=== PATIENT | female | born 1950 | race Caucasian/White ===

== ENCOUNTER 2016-07-11 16:59 | Observation (INO) | payer MEDICARE, OTHER ==
[2016-07-11] MEDS ORDERED: Sodium Chloride 0.9% 500 ML 500 ML IV PRN (17:13)
[2016-07-11] MEDS ORDERED: BENADRYL 25 MG CAPSULE PO SCH (17:15)
[2016-07-11] MEDS ORDERED: Zofran 4 MG/2 ML VIAL IV PRN (17:16)
[2016-07-11] MEDS ORDERED: TYLENOL 325 MG PO SCH (17:30)
[2016-07-11 18:39] LABS: BASOPHIL % 1.3 % (0.0-0.4); Eosinophil % 2.4 % (0.00-5.0); Lymphocytes % 12.3 % (24.0-44.0); Mean Cell Volume 69.8 fl (78-100); Mean Corpuscular Hemoglobin 17.6 pg (26-32); Mean Platelet Volume 9.5 fl (6-9.5); Platelet Count 576 K/mm3 (150-450); Red Blood Count 3.01 M/mm3 (4.1-5.4); Red Cell Distribution Width 19.9 % (11.5-14.0); White Blood Count 8.3 K/mm3 (4.0-10.5)
[2016-07-12] MEDS ORDERED: BENADRYL 25 MG CAPSULE ONE (04:44)
[2016-07-12] MEDS ORDERED: TYLENOL 325 MG ONE (04:45)
[2016-07-12 04:47] VITALS: O2SAT 96
[2016-07-12 07:32] VITALS: BP 153/70; PULSE 83
--- NOTE | 2016-07-12 08:35 | PCM.SSS ---
History of Present Illness - Chief Complaint Chief Complaint: SOB, Anemia History of Present Illness: is a 66 year old female who was direct admitted from the office for profound anemia, she complained of shortness of breath and palpitations, had hemoglobin of 5.3 She has no prior history of anemia, hadn't had labs done for many years. denies history of GI bleeding, takes asa 81mg daily for heart protection and bp med. she denies bowel changes, has never had a colonoscopy. she is menopausal and has no vaginal bleeding etc. her diet is normal - Review of Systems Constitutional: No Fever, No Chills Respiratory: Short Of Breath Cardiac: Palpitations, No Chest Pain Abdominal/Gastrointestinal: No Abdominal Pain, No Nausea, No Vomiting, No Diarrhea, No Constipation, No Hematemesis, No Hematochezia, No Melena Genitourinary Symptoms: No Dysuria Skin: No Rash All Other Systems: Reviewed and Negative Medications & Allergies Home Medications: Home Medication List Esomeprazole Magnesium [Nexium] 20 mg PO DAILY 07/11/16 [History Confirmed 07/11] Valsartan/Hydrochlorothiazide [Valsartan-Hctz 80-12.5 mg Tab] 1 each PO DAILY [History Confirmed 07/11/16] Docusate Sodium 100 mg [Colace 100 MG] 100 mg PO BID #60 capsule 07/12/16 [Rx] Ferrous Sulfate 325 mg [Feosol 325 mg] 325 mg PO BID #60 tablet 07/12/16 [ Rx] Allergies/Adverse Reactions: Allergies Allergy/AdvReac Type Severity Reaction Status Date / Time cefuroxime [From Ceftin] Allergy Verified 07/11/16 18:08 etodolac [From Lodine] Allergy Hives Verified 07/11/16 18:07 clarithromycin [From Biaxin] AdvReac Verified 07/11/16 18:07 levofloxacin [From Levaquin] AdvReac Verified 07/11/16 18:07 - Past Medical History Past Medical History: Yes Neurological History: No Pertinent History ENT History: No Pertinent History Cardiac History: Hypertension Respiratory History: Other Endocrine Medical History: No Pertinent History Musculoskelatal History: No Pertinent History GI Medical History: GERD History: No Pertinent History Pyscho-Social History: No Pertinent History Reproductive Disorders: No Pertinent History Comment: Hx of pnuemothorax. - Female History Are you now?: No - Past Surgical History Past Surgical History: Yes Neuro Surgical History: No Pertinent History Cardiac History: No Pertinent History Respiratory Surgery: Lobectomy GI Surgical History: No Pertinent History Genitourinary Surgical Hx: No Pertinent History Musculskeletal Surgical Hx: Orthopedic Surgery Female Surgical History: Tubal Ligation Other Surgical History: LLL lobectomy. Foot Sx 5 times. - Social History Smoking Status: Never smoker Exposure to second hand smoke: Yes (Relatives) Alcohol: Occasionally Drug Use: none - Physical Exam Vital Signs: Vital Signs - 24 hr Temp Pulse Resp BP Pulse Ox 07/12/16 07:32 98.3 F 83 18 153/70 96 07/12/16 06:35 19 07/12/16 04:47 98.5 F 07/12/16 04:00 98.7 F 82 19 155/69 96 07/12/16 00:00 98.8 F 84 18 136/71 100 07/11/16 18:32 98.5 F 104 H 18 137/69 97 07/11/16 18:00 98.5 F 104 H 137/69 07/11/16 17:54 98.5 F 104 H 18 137/69 97 General Appearance: no apparent distress, alert Neurologic Exam: alert, oriented x 3, cooperative, normal mood/affect, nml cerebellar function, nml station & gait, sensation nml, No motor deficits Respiratory Exam: normal breath sounds, lungs clear, No respiratory distress Cardiovascular Exam: regular rate/rhythm, normal heart sounds, normal peripheral pulses Gastrointestinal/Abdomen Exam: soft, normal bowel sounds, No tenderness, No mass Extremity Exam: normal inspection, normal range of motion, pelvis stable Skin Exam: normal color, warm, dry, No rash Results - Labs Lab/Micro Results: Lab Results-Last 24 Hours 07/11/16 07/11/16 07/11/16 Range/Units 18:30 18:30 18:30 WBC 8.3 (4.0-10.5) K/mm3 RBC 3.01 L (4.1-5.4) M/mm3 Hgb 5.3 L* (12.0-16.0) gm/dl Hct 21.0 L (35-47) % MCV 69.8 L (78-100) fl MCH 17.6 L (26-32) pg MCHC 25.2 L (32-36) g/dl RDW 19.9 H (11.5-14.0) % Plt Count 576 H (150-450) K/mm3 MPV 9.5 (6-9.5) fl Gran % 77.0 H (36.0-66.0) % Lymphocytes % 12.3 L (24.0-44.0) % Monocytes % 7.0 (0.0-12.0) % Eosinophils % 2.4 (0.00-5.0) % Basophils % 1.3 (0.0-0.4) % Basophils # 0.11 (0-0.4) Iron 15 L (50-175) ug/dl TIBC 455 H (250-450) ug/dl Iron Saturation 3.3 L (20-39) % Ferritin 2 L (8-388) Vitamin B12 455 (193-986) Folic Acid 16.8 (8.6-58.9) ABO Group Rh Factor Antibody Screen (NEGATIVE) Crossmatch (COMPATIBLE) 07/11/16 07/11/16 07/11/16 Range/Units 18:30 18:30 18:30 WBC (4.0-10.5) K/mm3 RBC (4.1-5.4) M/mm3 Hgb (12.0-16.0) gm/dl Hct (35-47) % MCV (78-100) fl MCH (26-32) pg MCHC (32-36) g/dl RDW (11.5-14.0) % Plt Count (150-450) K/mm3 MPV (6-9.5) fl Gran % (36.0-66.0) % Lymphocytes % (24.0-44.0) % Monocytes % (0.0-12.0) % Eosinophils % (0.00-5.0) % Basophils % (0.0-0.4) % Basophils # (0-0.4) Iron (50-175) ug/dl TIBC (250-450) ug/dl Iron Saturation (20-39) % Ferritin (8-388) Vitamin B12 (193-986) Folic Acid (8.6-58.9) ABO Group O Rh Factor NEGATIVE Antibody Screen NEGATIVE (NEGATIVE) Crossmatch COMPATIBLE COMPATIBLE COMPATIBLE (COMPATIBLE) - Radiology Impressions Radiology Exams & Impressions: Radiology Procedures Category Date Time Status CHEST 2 VIEWS (PA AND LAT) Routine Exams 07/11/16 18:05 Taken Assessment/Plan (1) Iron deficiency anemia Current Visit: Yes Status: Acute Assessment & Plan: has been transfused 3 units and all symptoms have resolved. post-transfusion h/ h has not been drawn. will discharge on iron and stool softener, patient needs outpatient EGD and colonoscopy but she seems very reluctant and states she wants to get recovered from this before she has it done, she has no family history of colon cancer or stool changes etc but I discussed my recommendation and risk of chronic bleed and missed lesions etc. she voices understanding, these need to be arranged after discharge Code(s): D50.9 - IRON DEFICIENCY ANEMIA, UNSPECIFIED (2) Essential (primary) hypertension Current Visit: Yes Status: Acute Assessment & Plan: resume home meds Code(s): I10 - ESSENTIAL (PRIMARY) HYPERTENSION Hospital Summary - Vitals & Intake/Output Vital Signs: Vital Signs Temperature 98.3 F 07/12/16 07:32 Pulse Rate 83 07/12/16 07:32 Respiratory Rate 18 07/12/16 07:32 Blood Pressure 153/70 07/12/16 07:32 O2 Sat by Pulse Oximetry 96 07/12/16 07:32 Intake & Output: Intake & Output 07/09/16 07/10/16 07/11/16 07/12/16 11:59 11:59 11:59 11:59 Intake Total 2053 Balance 2053 Weight 79.787 kg - Lab Result Diagrams: 07/11/16 18:30 Lab Results-Last 24 Hrs: Lab Results-Last 24 Hours 07/11/16 07/11/16 07/11/16 Range/Units 18:30 18:30 18:30 WBC 8.3 (4.0-10.5) K/mm3 RBC 3.01 L (4.1-5.4) M/mm3 Hgb 5.3 L* (12.0-16.0) gm/dl Hct 21.0 L (35-47) % MCV 69.8 L (78-100) fl MCH 17.6 L (26-32) pg MCHC 25.2 L (32-36) g/dl RDW 19.9 H (11.5-14.0) % Plt Count 576 H (150-450) K/mm3 MPV 9.5 (6-9.5) fl Gran % 77.0 H (36.0-66.0) % Lymphocytes % 12.3 L (24.0-44.0) % Monocytes % 7.0 (0.0-12.0) % Eosinophils % 2.4 (0.00-5.0) % Basophils % 1.3 (0.0-0.4) % Basophils # 0.11 (0-0.4) Iron 15 L (50-175) ug/dl TIBC 455 H (250-450) ug/dl Iron Saturation 3.3 L (20-39) % Ferritin 2 L (8-388) Vitamin B12 455 (193-986) Folic Acid 16.8 (8.6-58.9) ABO Group Rh Factor Antibody Screen (NEGATIVE) Crossmatch (COMPATIBLE) 07/11/16 07/11/16 07/11/16 Range/Units 18:30 18:30 18:30 WBC (4.0-10.5) K/mm3 RBC (4.1-5.4) M/mm3 Hgb (12.0-16.0) gm/dl Hct (35-47) % MCV (78-100) fl MCH (26-32) pg MCHC (32-36) g/dl RDW (11.5-14.0) % Plt Count (150-450) K/mm3 MPV (6-9.5) fl Gran % (36.0-66.0) % Lymphocytes % (24.0-44.0) % Monocytes % (0.0-12.0) % Eosinophils % (0.00-5.0) % Basophils % (0.0-0.4) % Basophils # (0-0.4) Iron (50-175) ug/dl TIBC (250-450) ug/dl Iron Saturation (20-39) % Ferritin (8-388) Vitamin B12 (193-986) Folic Acid (8.6-58.9) ABO Group O Rh Factor NEGATIVE Antibody Screen NEGATIVE (NEGATIVE) Crossmatch COMPATIBLE COMPATIBLE COMPATIBLE (COMPATIBLE) - Radiology Exams Ordered Rad Exams-Entire Visit: Radiology Procedures Category Date Time Status CHEST 2 VIEWS (PA AND LAT) Routine Exams 07/11/16 18:05 Taken - Discharge Disposition: Home, Self-Care Condition: Stable Prescriptions: Docusate Sodium 100 mg [Colace 100 MG] 100 mg PO BID #60 capsule Ferrous Sulfate 325 mg [Feosol 325 mg] 325 mg PO BID #60 tablet Medications: Home Medications Aspirin [Aspirin EC] 81 mg PO DAILY 07/11/16 [Confirmed 07/11/16] Esomeprazole Magnesium [Nexium] 20 mg PO DAILY 07/11/16 [Confirmed 07/11/16] Valsartan/Hydrochlorothiazide [Valsartan-Hctz 80-12.5 mg Tab] 1 each PO DAILY [Confirmed 07/11/16] Active Inpatient Medications Hydrochlorothiazide (Hydrodiuril 25 Mg) 12.5 mg PO DAILY [facility] Stop: 08/11/16 09:59 Last Admin: 07/12/16 08:25 Dose: Not Given Sodium Chloride (Sodium Chloride 0.9% 500 Ml) 500 mls @ 50 mls/hr IV .Q10H PRN Stop: 08/10/16 17:12 Ondansetron HCl (Zofran 4 Mg/2 Ml Vial) 4 mg IV Q4H PRN PRN Stop: 08/10/16 17:15 Pantoprazole Sodium (Protonix 40mg Tablet) 40 mg PO DAILY [facility] Stop: 08/11/16 09:59 Last Admin: 07/12/16 08:24 Dose: Not Given Valsartan (Diovan 80 Mg) 80 mg PO DAILY [facility] Stop: 08/11/16 09:59 Last Admin: 07/12/16 08:25 Dose: Not Given Follow up with: SANTOS GU MD [Primary Care Provider] - 1 Week
--- NOTE | 2016-07-12 08:53 | XRAY ---
Indication: Short of breath, palpitations, and anemia. Comparison: October 25, 2006 PA/lateral chest remains clear again with a few calcified granulomas. Heart is not enlarged. Stable moderate-sized hiatal hernia. Bony thorax intact again with mild osteopenia, degenerative changes, and scoliosis. Impression: Stable nonacute chest with chronic features.
--- NOTE | 2016-07-12 09:09 | PCM.DCORD ---
- Discharge Disposition: Home, Self-Care Condition: Stable Prescriptions: Docusate Sodium 100 mg [Colace 100 MG] 100 mg PO BID #60 capsule Ferrous Sulfate 325 mg [Feosol 325 mg] 325 mg PO BID #60 tablet Medications: Home Medications Esomeprazole Magnesium [Nexium] 20 mg PO DAILY 07/11/16 [Confirmed 07/11/16] Valsartan/Hydrochlorothiazide [Valsartan-Hctz 80-12.5 mg Tab] 1 each PO DAILY [Confirmed 07/11/16] Docusate Sodium 100 mg [Colace 100 MG] 100 mg PO BID #60 capsule 07/12/16 Ferrous Sulfate 325 mg [Feosol 325 mg] 325 mg PO BID #60 tablet 07/12/16 Active Inpatient Medications Hydrochlorothiazide (Hydrodiuril 25 Mg) 12.5 mg PO DAILY [facility] Stop: 08/11/16 09:59 Last Admin: 07/12/16 08:25 Dose: Not Given Sodium Chloride (Sodium Chloride 0.9% 500 Ml) 500 mls @ 50 mls/hr IV .Q10H PRN Stop: 08/10/16 17:12 Ondansetron HCl (Zofran 4 Mg/2 Ml Vial) 4 mg IV Q4H PRN PRN Stop: 08/10/16 17:15 Pantoprazole Sodium (Protonix 40mg Tablet) 40 mg PO DAILY [facility] Stop: 08/11/16 09:59 Last Admin: 07/12/16 08:24 Dose: Not Given Valsartan (Diovan 80 Mg) 80 mg PO DAILY [facility] Stop: 08/11/16 09:59 Last Admin: 07/12/16 08:25 Dose: Not Given Follow up with: SANTOS GU MD [Primary Care Provider] - 1 Week
[2016-07-12] MEDS ORDERED: Protonix 40MG Tablet PO SCH (10:00)
[2016-07-12] MEDS ORDERED: DIOVAN 80 MG PO SCH (10:00)
[2016-07-12] MEDS ORDERED: hydroDIURIL 25 MG PO SCH (10:00)
== END 2016-07-12 09:50 | disposition home or self-care (01) ==
LOC: MED SURG 17:14
PROVIDERS: ADMIT Family Medicine; ATTEND Family Medicine
DX: D50.9 Iron deficiency anemia, unspecified (principal); I10 Essential (primary) hypertension; K21.9 Gastro-esophageal reflux disease without esophagitis
CPT/HCPCS: 36415; 36430; 71020; 80053; 82607; 82728; 82746; 83540; 83550; 85014; 85018; 85025; 85045; 86850; 86900; 86901; 86922; 93268; G0378; P9016

== ENCOUNTER 2021-02-18 13:59 | Emergency (ER) | payer MEDICARE, OTHER ==
[2021-02-18] MEDS ORDERED: Adenocard IV 6 MG/2 ML IV ONE ×2 (14:12→14:51)
--- NOTE | 2021-02-18 14:16 | ERPHSYRPT ---
- History of Present Illness Time Seen by Provider: 02/18/21 14:15 Source: patient Exam Limitations: no limitations Patient Subjective Stated Complaint: Pt states "I was walking in [place] and I started to have palpitations and shortness of breath and my heart was racing." Triage Nursing Assessment: Pt presented alert and oriented X 3, skin pwd Pt ambulates with an upright steady gait, able to speak in clear full sentences pt in no apparent respiratory distress. Timing/Duration: today Activities at Onset: activity Quality: pressure Location: central Chest Pain Radiation: no radiation Severity of Pain-Max: mild Severity of Pain-Current: none Modifying Factors: Improves With: nothing Nitro Today/Relief: no nitro taken today Aspirin Treatment Today: no aspirin today Associated Symptoms: denies symptoms Prior Chest Pain/Cardiac Workup: no prior chest pain Allergies/Adverse Reactions: cefuroxime [From Ceftin] Allergy (Verified 07/11/16 18:08) etodolac [From Lodine] Allergy (Verified 07/11/16 18:07) Hives clarithromycin [From Biaxin] Adverse Reaction (Verified 07/11/16 18:07) levofloxacin [From Levaquin] Adverse Reaction (Verified 07/11/16 18:07) Home Medications: Esomeprazole Magnesium [Nexium] 20 mg PO DAILY 07/11/16 [History] Losartan/Hydrochlorothiazide [Losartan-Hctz 100-12.5 mg Tab] 1 each PO DAILY 02/18/21 [History] Hx Tetanus, Diphtheria Vaccination/Date Given: No Hx Influenza Vaccination/Date Given: Yes Hx Pneumococcal Vaccination/Date Given: No Immunizations Up to Date: Yes Travel Risk - International Travel Have you traveled outside of the country in past 3 weeks: No - Coronavirus Screening Are you exhibiting any of the following symptoms?: No Close contact with a COVID-19 positive Pt in past 14-21 Days: No - Vaccine Status Have you recieved a Covid-19 vaccination: Yes [employer]: [employer] - Vaccination Dates Date of 2cond Vaccination (if applicable): 08/2020 - Review of Systems Constitutional: No Symptoms Eyes: No Symptoms Ears, Nose, & Throat: No Symptoms Respiratory: No Symptoms Cardiac: Palpitations Abdominal/Gastrointestinal: No Symptoms Genitourinary Symptoms: No Symptoms Musculoskeletal: No Symptoms Skin: No Symptoms Neurological: No Symptoms Psychological: No Symptoms Endocrine: No Symptoms Hematologic/Lymphatic: No Symptoms Immunological/Allergic: No Symptoms All Other Systems: Reviewed and Negative - Past Medical History Pertinent Past Medical History: Yes Neurological History: No Pertinent History ENT History: No Pertinent History Cardiac History: Hypertension Respiratory History: Other Endocrine Medical History: No Pertinent History Musculoskeletal History: No Pertinent History GI Medical History: GERD History: No Pertinent History Psycho-Social History: No Pertinent History Female Reproductive Disorders: No Pertinent History Other Medical History: Hx of pnuemothorax. - Past Surgical History Past Surgical History: Yes Neuro Surgical History: No Pertinent History Cardiac: No Pertinent History Respiratory: Lobectomy Gastrointestinal: No Pertinent History Genitourinary: No Pertinent History Musculoskeletal: Orthopedic Surgery Female Surgical History: Tubal Ligation Other Surgical History: LLL lobectomy. Foot Sx 5 times. - Social History Smoking Status: Never smoker Exposure to second hand smoke: No Drug Use: none Patient Lives Alone: No Significant Family History: no pertinent family hx - Female History Hx Now: No - Nursing Vital Signs Nursing Vital Signs: Initial Vital Signs Temperature 98.7 F 02/18/21 13:59 Pulse Rate 155 H 02/18/21 13:59 Respiratory Rate 22 02/18/21 13:59 Blood Pressure 154/91 02/18/21 13:59 O2 Sat by Pulse Oximetry 100 02/18/21 13:59 Pain Scale Pain Intensity 0 - Physical Exam General Appearance: no apparent distress Eye Exam: PERRL/EOMI Ears, Nose, Throat Exam: normal ENT inspection Neck Exam: normal inspection Respiratory Exam: normal breath sounds Cardiovascular Exam: tachycardia Pelvic Exam: not done Rectal Exam: not done Back Exam: normal inspection Extremity Exam: normal inspection Neurologic Exam: alert, oriented x 3, cooperative Skin Exam: normal color SpO2 Interpretation: normal SpO2: 100 O2 Delivery: Room Air - Course Nursing assessment & vital signs reviewed: Yes EKG Interpreted by Me: RATE (150), Sinus Tach, NORMAL AXIS, NORMAL INTERVALS, NORMAL QRS, NORMAL ST-T Rhythm Strip: Sinus Tachycardia Ordered Tests: Medication Summary Discontinued Medications Generic Name Dose Route Start Last Admin Trade Name Freq PRN Reason Stop Dose Admin Adenosine Confirm 02/18/21 14:12 Adenocard Iv 6 Mg/2 Ml Administered 02/18/21 14:13 Dose 18 mg IV .STK-MED ONE Adenosine 6 mg 02/18/21 14:51 02/18/21 14:05 Adenocard Iv 6 Mg/2 Ml IV 02/18/21 14:52 6 mg STAT ONE Administration Sodium Chloride Confirm 02/18/21 14:18 Sodium Chloride 0.9% 1000 Ml Administered 02/18/21 14:19 Dose 1,000 mls @ .ROUTE .[facility]-MED ONE Lab/Rad Data: Laboratory Result Diagrams 02/18/21 14:20 02/18/21 14:20 Laboratory Results 02/18/21 02/18/21 02/18/21 Range/Units 14:20 14:20 14:20 WBC 10.2 (4.0-10.5) K/mm3 RBC 3.91 L (4.1-5.4) M/mm3 Hgb 8.4 L (12.0-16.0) gm/dl Hct 31.5 L (35-47) % MCV 80.6 (78-100) fl MCH 21.5 L (26-32) pg MCHC 26.7 L (32-36) g/dl RDW 23.1 H (11.5-14.0) % Plt Count 483 H (150-450) K/mm3 MPV 10.7 (7.5-11.0) fl Sodium 137 (137-145) mmol/L Potassium 3.9 (3.5-5.1) mmol/L Chloride 99 (98-107) mmol/L Carbon Dioxide 22 (22-30) mmol/L Anion Gap 20.0 H (5-15) MEQ/L BUN 23 H (7-17) mg/dL Creatinine 1.02 (0.52-1.04) mg/dL Estimated GFR 57.1 ML/MIN Glucose 130 H (74-106) mg/dL Calcium 9.8 (8.4-10.2) mg/dL Total Bilirubin 0.50 (0.2-1.3) mg/dL AST 26 (14-36) U/L ALT 14 (0-35) U/L Alkaline Phosphatase 99 (38-126) U/L Troponin I < 0.012 (0.000-0.034) ng/mL Serum Total Protein 7.7 (6.3-8.2) g/dL Albumin 4.8 (3.5-5.0) g/dL TSH 3rd Generation 1.730 (0.47-4.68) mIU/L Slides for Path Review YES - Progress Progress: re-examined Air Movement: good Progress Note: 02/24/21 16:19 One dose of adenocard changed her from sinus tach to NSR. She did not want admitted. 02/24/21 16:20 Blood Culture(s) Obtained: No Antibiotics given: No Counseled pt/family regarding: diagnosis, need for follow-up - Departure Departure Disposition: Home Clinical Impression: Tachycardia Anemia Qualifiers: Anemia type: unspecified type Qualified Code(s): D64.9 - Anemia, unspecified Condition: Stable Critical Care Time: No Referrals: DOCTOR,NO FAMILY [Primary Care Provider] - Instructions: Anemia Caused by Low Iron, Arrhythmias (DC) Additional Instructions: Important to see your right away about the anemia, and the episode of rapid heart rate.
[2021-02-18] MEDS ORDERED: Sodium Chloride 0.9% 1000 ML 1,000 ML ONE (14:18)
[2021-02-18 14:59] LABS: Hematocrit 31.5 % (35-47); Hemoglobin 8.4 gm/dl (12.0-16.0); Mean Cell Volume 80.6 fl (78-100); Mean Corpuscular Hemoglobin 21.5 pg (26-32); Mean Corpuscular Hgb Concent. 26.7 g/dl (32-36); Mean Platelet Volume 10.7 fl (7.5-11.0); Platelet Count 483 K/mm3 (150-450); Red Blood Count 3.91 M/mm3 (4.1-5.4); Red Cell Distribution Width 23.1 % (11.5-14.0); White Blood Count 10.2 K/mm3 (4.0-10.5)
[2021-02-18 15:33] LABS: Slide Review YES
[2021-02-18 15:42] LABS: ALBUMIN 4.8 g/dL (3.5-5.0); BILIRUBIN,TOTAL 0.5 mg/dL (0.2-1.3); Calcium 9.8 mg/dL (8.4-10.2); Creatinine 1 1.02 mg/dL (0.52-1.04); EST GLOMERULAR FILTRATION RATE 57.1 ML/MIN; Potassium 3.9 mmol/L (3.5-5.1); TSH, 3RD Generation 1.73 mIU/L (0.47-4.68); Total Protein 7.7 g/dL (6.3-8.2)
[2021-02-18 16:41] VITALS: BP 146/81; PULSE 83
[2021-02-24 16:20] VITALS: O2SAT 100
== END 2021-02-18 16:53 | disposition home or self-care (01) ==
LOC: ED 13:59
DX: R00.0 Tachycardia, unspecified (principal); D64.9 Anemia, unspecified; R06.02 Shortness of breath; I10 Essential (primary) hypertension; Z79.899 Other long term (current) drug therapy
CPT/HCPCS: 36000; 36415; 80053; 84443; 84484; 85027; 93005; 96374; 99284; J0153

== ENCOUNTER 2023-07-29 10:12 | Emergency (ER) | payer MEDICARE, OTHER ==
[2023-07-29] MEDS ORDERED: XYLOCAINE 1% HCL 20 ML MDV ONE (10:32)
[2023-07-29 10:33] VITALS: TEMP 98.7; O2SAT 99
--- NOTE | 2023-07-29 10:41 | ERPHSYRPT ---
- History of Present Illness Time Seen by Provider: 07/29/23 10:38 Source: patient Exam Limitations: no limitations Patient Subjective Stated Complaint: C/O "boil" to right labia Triage Nursing Assessment: Patient ambulated back to ER. She is alert and oriented. Patient with a large, red, warm, firm protrusion from right labia with a small open, yellow slough center. NO current drainage. ARea is tender to touch. Physician History: C/O "boil" to right labia Patient with a large, red, warm, firm protrusion from right labia with a small open, yellow slough center. NO current drainage. Area is tender to touch. Timing/Duration: day(s) (3-4 days) Quality: throbbing Onset Location: vaginal Pain Radiation: none Severity of Pain-Max: moderate Severity of Pain-Current: moderate Sexual intercourse history: non-contributory Modifying Factors: Improves With: nothing Associated Symptoms: vaginal discharge Allergies/Adverse Reactions: cefuroxime [From Ceftin] Allergy (Verified 07/29/23 10:20) etodolac [From Lodine] Allergy (Verified 07/29/23 10:20) Hives clarithromycin [From Biaxin] Adverse Reaction (Verified 07/29/23 10:20) levofloxacin [From Levaquin] Adverse Reaction (Verified 07/29/23 10:20) Home Medications: Ferrous Sulfate [Iron] 1 tab PO BID 07/29/23 [History] Losartan/Hydrochlorothiazide [Losartan-Hctz 100-12.5 mg Tab] 1 tab PO DAILY 07/29/23 [History] Hx Tetanus, Diphtheria Vaccination/Date Given: Yes Hx Influenza Vaccination/Date Given: Yes Hx Pneumococcal Vaccination/Date Given: No Travel Risk - International Travel Have you traveled outside of the country in past 3 weeks: No - Coronavirus Screening Are you exhibiting any of the following symptoms?: No Close contact with a COVID-19 positive Pt in past 14-21 Days: No - Vaccine Status Have you recieved a Covid-19 vaccination: Yes [facility] W[employer]rer: [facility] - Vaccination Dates Date of 2cond Vaccination (if applicable): 08/2020 - Review of Systems Constitutional: No Fever, No Chills Eyes: No Symptoms Ears, Nose, & Throat: No Symptoms Respiratory: No Cough, No Dyspnea Cardiac: No Chest Pain, No Edema, No Syncope Abdominal/Gastrointestinal: No Abdominal Pain, No Nausea, No Vomiting, No Diarrhea Genitourinary Symptoms: Vaginal Discharge, No Dysuria Musculoskeletal: No Back Pain, No Neck Pain Skin: No Rash Neurological: No Dizziness, No Focal Weakness, No Sensory Changes Psychological: No Symptoms Endocrine: No Symptoms All Other Systems: Reviewed and Negative - Past Medical History Pertinent Past Medical History: Yes Neurological History: No Pertinent History ENT History: No Pertinent History Cardiac History: Hypertension Respiratory History: Other Endocrine Medical History: No Pertinent History Musculoskeletal History: No Pertinent History GI Medical History: GERD History: No Pertinent History Psycho-Social History: No Pertinent History Female Reproductive Disorders: No Pertinent History Other Medical History: Hx of pnuemothorax. - Past Surgical History Past Surgical History: Yes Neuro Surgical History: No Pertinent History Cardiac: No Pertinent History Respiratory: Lobectomy Gastrointestinal: No Pertinent History Genitourinary: No Pertinent History Musculoskeletal: Orthopedic Surgery Female Surgical History: Tubal Ligation Other Surgical History: LLL lobectomy. Foot Sx 5 times. - Social History Smoking Status: Never smoker Exposure to second hand smoke: No Drug Use: none Patient Lives Alone: No Significant Family History: no pertinent family hx - Nursing Vital Signs Nursing Vital Signs: Initial Vital Signs Temperature 98.7 F 07/29/23 10:22 Pulse Rate 97 H 07/29/23 10:22 Respiratory Rate 18 07/29/23 10:22 Blood Pressure 181/98 07/29/23 10:22 O2 Sat by Pulse Oximetry 99 07/29/23 10:22 Pain Scale Pain Intensity 8 - Physical Exam General Appearance: no apparent distress, alert Eye Exam: PERRL/EOMI, eyes nml inspection Ears, Nose, Throat Exam: normal ENT inspection, TMs normal, pharynx normal, moist mucous membranes Neck Exam: normal inspection, non-tender, supple, full range of motion Respiratory Exam: normal breath sounds, lungs clear, No respiratory distress Cardiovascular Exam: regular rate/rhythm, normal heart sounds, normal peripheral pulses Gastrointestinal/Abdomen Exam: soft, No tenderness, No mass Pelvic Exam: vaginal discharge Back Exam: normal inspection, normal range of motion, No CVA tenderness, No vertebral tenderness Extremity Exam: normal inspection, normal range of motion, pelvis stable Neurologic Exam: alert, oriented x 3, cooperative, bilingual interpreter II-XII nml as tested, normal mood/affect, sensation nml, No motor deficits Skin Exam: normal color, warm, dry Lymphatic Exam: No adenopathy SpO2 Interpretation: normal SpO2: 99 O2 Delivery: Room Air - Course Nursing assessment & vital signs reviewed: Yes Ordered Tests: Medication Summary Discontinued Medications Generic Name Dose Route Start Last Admin Trade Name Rakesh PRN Reason Stop Dose Admin Lidocaine HCl Confirm 07/29/23 10:32 Lidocaine Hcl 1% 20 Ml Mdv 20 Ml Ml Administered 07/29/23 10:33 Dose 5 ml .ROUTE .STK-MED ONE Lidocaine/Prilocaine Confirm 07/29/23 11:11 Lidocaine/Prilocaine 5 Gm 5 Gm Tube Administered 07/29/23 11:12 Dose 5 gm TP .STK-MED ONE - Progress Progress: improved Progress Note: 07/29/23 10:40 Dr. Mcmahon [employer] contacted she will see the patient in ER 07/29/23 11:43 Dr Mcmahon performed Incission and Drainage. She is going to follow up as outpatient. Counseled pt/family regarding: diagnosis, need for follow-up Medical Desision Making - Discussion of managment Care discussed with:: specialist (Dr Mcmahon ([employer]), Came and saw patient. She Performed I&D in ED) - Departure Departure Disposition: Home Clinical Impression: Bartholin gland cyst Condition: Stable Critical Care Time: No Referrals: CESAR AIKEN NP [Primary Care Provider] - Follow Up with PCP/3 days (Follow up with Dr Mcmahon on monday) Instructions: Bartholin gland cyst Additional Instructions: Discharge/Care Plan KAIDEN BARNETT was seen on 07/29/23 in the Emergency Room. The patient was counseled regarding Diagnosis,Lab results, Imaging studies, need for follow up and when to return to the Emergency Room. Prescriptions given: Discharge Note I have spoken with the patient and/or caregivers. I have explained the patient's condition, diagnosis and treatment plan based on the information available to me at this time. I have answered the patient's and/or caregiver's questions and addressed any concerns. The patient and/or caregivers have as good understanding of the patient's diagnosis, condition and treatment plan as can be expected at this point. The vital signs have been stable. The patient's condition is stable and appropriate for discharge from the emergency department. The patient will pursue further outpatient evaluation with the primary care physician or other designated or consulting physician as outlined in the discharge instructions. The patient and/or caregivers are agreeable to this plan of care and follow-up instructions have been explained in detail. The patient and/or caregivers have received these instruction. The patient/and or caregivers are aware that any significant change in condition or worsening of symptoms should prompt an immediate return to this or the closest emergency department or call 911. KAIDEN BARNETT was seen on 07/29/23 n the Emergency Room. At that time you were treated for an emergent condition, during your visit Laboratory, Radiology and/or other procedures may have been ordered. It is very important that you follow-up with your Primary Care Physician CESAR AIKEN within the next 24-48 hours to review your Emergency Room visit and the final results of testing that was ordered. Some test results such as Urine Cultures, Blood Cultures, and other cultures if ordered will not be finalized for 24-48 hours. If you do not have a Primary Care Provider please call the medical records department at [phone] ext [phone] to obtain a copy of your results or you may sign into our patient portal to obtain these results by visiting us @ [email or web address] and completing the following steps: 1. Click on the Patient Portal link 2. Click the Patient Self Enrollment Link to complete the enrollment form and entering your 3. Once the enrollment form is completed you will receive an email with a temporary ID and password at the email address you provided. 4. Next choose a user name and password. Your user name must be at least 4 characters long and your password must be at least 4 characters long. 5. Choose a security question from the list and provide your answer to the question. If you already have signed into the Health Portal you may access your Health Care Information 23/01 by the following steps: 1. Login to our website @ [email or web address] 2. Enter your original user name and password. FAQS The [facility] Health Portal is an online tool that contains your Lab Results, Radiology Reports, Visit History, Discharge Instructions and Health Summary Lab and Radiology Results will not be available for 72 hours on the portal. The Portal is a secure site, passwords are encryted and URLs are re-written so they cannot be copied and pasted. You and authorized family members are the only ones who can access your Portal. Also there is a timeout feature that protects your information if you leave the Portal page open. If you have technical difficulty please use the Contact Us link on the page this will allow you to submit any questions you have regarding the Portal or you may contact the Medical Record Department at [phone] ext [phone]. Prescriptions: Cephalexin Mh 500 mg [Keflex 500 mg] 500 mg PO Q6H #40 cap
[2023-07-29] MEDS ORDERED: EMLA Cream 5 GM TP ONE (11:11)
[2023-07-29 11:21] VITALS: BP 171/90; PULSE 65; RESP 17
--- NOTE | 2023-07-29 11:21 | PCM.CONS ---
History of Present Illness - Reason for Consult Chief Complaint: abscess Date of Consultation Date: 07/29/23 Reason for Consult: labial abscess Requesting Provider: Dr. Alford Consulting Provider: JOHN MARTINEZ MD History of Present Illness: is a 73 year old female seen on consult in ER due to right labial abscess. Had noted a bump there about 7d ago and tried sitz baths at home but continued to worsen. Had some bleeding onto her undergarments but denies overt drainage or fevers/ill feeling. Has never had something like this before. but not sexually active. No vaginal bleeding. - Review of Systems Constitutional: No Symptoms, No Fever, No Chills, No Fatigue, No Lethargy, No Malaise, No Night Sweats Genitourinary Symptoms: No Vaginal Bleeding Medications & Allergies Home Medications: Home Medication List Ferrous Sulfate [Iron] 1 tab PO BID 07/29/23 [History Confirmed 07/29/23] Losartan/Hydrochlorothiazide [Losartan-Hctz 100-12.5 mg Tab] 1 tab PO DAILY 07/29/23 [History Confirmed 07/29/23] Allergies/Adverse Reactions: Allergies Allergy/AdvReac Type Severity Reaction Status Date / Time cefuroxime [From Ceftin] Allergy Verified 07/29/23 10:20 etodolac [From Lodine] Allergy Hives Verified 07/29/23 10:20 clarithromycin [From Biaxin] AdvReac Verified 07/29/23 10:20 levofloxacin [From Levaquin] AdvReac Verified 07/29/23 10:20 - Past Medical History Past Medical History: Yes Neurological History: No Pertinent History ENT History: No Pertinent History Cardiac History: Hypertension Respiratory History: Other Endocrine Medical History: No Pertinent History Musculoskelatal History: No Pertinent History GI Medical History: GERD History: No Pertinent History Pyscho-Social History: No Pertinent History Reproductive Disorders: No Pertinent History Comment: Hx of pnuemothorax. - Past Surgical History Past Surgical History: Yes Neuro Surgical History: No Pertinent History Cardiac History: No Pertinent History Respiratory Surgery: Lobectomy GI Surgical History: No Pertinent History Genitourinary Surgical Hx: No Pertinent History Musculskeletal Surgical Hx: Orthopedic Surgery Female Surgical History: Tubal Ligation Other Surgical History: LLL lobectomy. Foot Sx 5 times. - Social History Smoking Status: Never smoker Exposure to second hand smoke: No Alcohol: Rarely Drug Use: none Significant Family History: no pertinent family hx - Physical Exam Vital Signs: Vital Signs - 24 hr Temp Pulse Resp BP Pulse Ox 07/29/23 11:07 99 07/29/23 10:22 98.7 F 97 H 18 181/98 99 General Appearance: no apparent distress, alert Neurologic Exam: alert, cooperative, normal mood/affect Neck Exam: normal inspection Pelvic Exam: other (right labial induration noted with central site of drainage with small amount of yellow purulence noted. Verbally consented for I&D of abscess. Numbed with topical lidocaine cream then cleansed with hibiclens and 5ml of 1% lidocaine plain injected.) Additional Findings: 07/29/23 11:47 Stab incision made at site of drainage and cultures collected. Cavity explored with sterile Qtip and iodoform gauze placed and trimmed. Tolerated well. EBL minimal. Chaperones present. Assessment/Plan (1) Abscess of labia majora Current Visit: Yes Status: Acute Assessment & Plan: I&D performed with iodoform gauze placed. C&S sent. To start keflex or similar abx for 7d and f/u in clinic this week for dressing changes and close f/u. Code(s): N76.4 - ABSCESS OF VULVA
== END 2023-07-29 12:06 | disposition home or self-care (01) ==
LOC: ED 10:12
DX: N75.0 Cyst of Bartholin's gland (principal); N76.4 Abscess of vulva; I10 Essential (primary) hypertension; Z79.899 Other long term (current) drug therapy
CPT/HCPCS: 56405; 87070; 87077; 87186; 99281; A9270-GY